=== PATIENT | female | born 1975 | race Caucasian/White ===

== ENCOUNTER → 2020-08-08 | Day surgery (SDC) | payer OTHER | END | disposition home or self-care (01) | LOC: FMAMMOTONE 12:15 | PROVIDERS: ATTEND Surgery | PROC: 0H9T3ZX Drainage of Right Breast, Percutaneous Approach, Diagnostic (ICD-10-PCS; principal; 2020-08-08) | DX: N60.31 Fibrosclerosis of right breast (principal) | CPT/HCPCS: 19081; 76098-TC-FY; 87899; 88305-TC; A4648 ==

== ENCOUNTER 2022-10-03 23:17 | Inpatient (IN) | payer OTHER ==
[2022-10-03 23:24] VITALS: BMI 26.0
[2022-10-03] MEDS ORDERED: ONDANSETRON 4 MG/2 ML VIAL IVPUSH ONE (23:53)
[2022-10-03] MEDS ORDERED: SODIUM CHLORIDE 0.9% 500 ML INFUS.BAG IV ONE (23:53)
[2022-10-03] MEDS ORDERED: ACETAMINOPHEN 1000 MG/100 ML BAG IVPB ONE (23:53)
[2022-10-03] MEDS ORDERED: ONDANSETRON 4 MG/2 ML VIAL ONE (23:56)
[2022-10-03] MEDS ORDERED: ACETAMINOPHEN INJECTION 100 ML IVPB ONE (23:56)
[2022-10-03 23:57] LABS: BASO % 0.5 % (0-2.0); EOS % 0.4 % (0-4.5); HEMATOCRIT 46.6 % (32.4-45.2); HEMOGLOBIN 16.2 GM/dL (10.7-15.3); LYMPH % 4.6 % (8-40); MCH 31.5 pg (25.7-33.7); MCHC 34.8 g/dl (32.0-36.0); MEAN CELL VOLUME 90.6 fl (80-96); MEAN PLT VOLUME 9.4 fl (7.5-11.1); MONO % 4.1 % (3.8-10.2); NEUT % 90.4 % (42.8-82.8); PLATELET COUNT 337 10^3/uL (134-434); RBC 5.14 M/mm3 (3.60-5.2); RDW 13.1 % (11.6-15.6); WHITE BLOOD COUNT 18.6 K/mm3 (4.0-10.0)
[2022-10-04] MEDS ORDERED: morphine SULFATE 4 MG/ML VIAL IVPUSH ONE (00:03)
[2022-10-04] MEDS ORDERED: morphine SULFATE 4 MG/ML VIAL ONE (00:07)
[2022-10-04 00:17] LABS: CALCIUM 9.8 mg/dL (8.5-10.1)
[2022-10-04 00:18] LABS: ALBUMIN 4.8 g/dl (3.4-5.0); BLOOD UREA NITROGEN 22.6 mg/dL (7-18)
[2022-10-04 00:21] LABS: CREATININE 1.6 mg/dL (0.55-1.3)
[2022-10-04 00:23] LABS: BILIRUBIN,TOTAL 0.7 mg/dL (0.2-1); TOT PROT 9.5 g/dl (6.4-8.2)
[2022-10-04 00:50] LABS: LACTIC ACID 2.4 mmol/L (0.4-2.0)
[2022-10-04 01:08] LABS: EPI CELLS >36 /uL (0-25.1); HYALINE CASTS 32 /uL (0-3.1); URINE APPEARANCE CLOUDY; URINE BACTERIA 659 /uL (0-1359); URINE BILIRUBIN 1+ (NEGATIVE); URINE COLOR DK YELLOW; URINE GLUCOSE (UA) NEGATIVE (NEGATIVE); URINE KETONE TRACE (NEGATIVE); URINE LEUK ESTERASE NEGATIVE (NEGATIVE); URINE NITRITE NEGATIVE (NEGATIVE); URINE PROTEIN 2+ (NEGATIVE); URINE RBC 94 /uL (0-23.9); URINE UROBILINOGEN 0.2 mg/dL (0.2-1.0)
[2022-10-04] MEDS ORDERED: SODIUM CHLORIDE 1,000 ML IV STA (04:03)
[2022-10-04] MEDS ORDERED: metroNIDAZOLE 250 MG TABLET PO ONE (05:14)
[2022-10-04] MEDS ORDERED: CIPROFLOXACIN 500 MG TABLET (RESTRICTED TO ID) PO ONE (05:18)
[2022-10-04] MEDS ORDERED: metroNIDAZOLE 250 MG TABLET ONE ×2 (05:22→13:51)
[2022-10-04] MEDS ORDERED: ACETAMINOPHEN 325 MG TABLET (FP) PO PRN (05:40)
[2022-10-04] MEDS ORDERED: DOCUSATE SODIUM 100 MG CAPSULE (FP) PO PRN (05:40)
[2022-10-04] MEDS ORDERED: HEPARIN NA (PORCINE) 5,000 UNITS/ML 1ML VIAL ONE ×2 (06:01→13:51)
[2022-10-04] MEDS: HEPARIN NA (PORCINE) 5,000 UNITS/ML 1ML VIAL SQ SCH ×2 (06:04→13:58)
[2022-10-04] MEDS ORDERED: TRIMETHOBENZAMIDE HCL 200MG/2ML INJ IM PRN (06:44)
[2022-10-04 07:23] VITALS: RESP 18
[2022-10-04 12:05] LABS: BASO % 0.5 % (0-2.0); EOS % 0.6 % (0-4.5); HEMATOCRIT 38.6 % (32.4-45.2); HEMOGLOBIN 13.2 GM/dL (10.7-15.3); LYMPH % 15.4 % (8-40); MCH 31.2 pg (25.7-33.7); MCHC 34.2 g/dl (32.0-36.0); MEAN CELL VOLUME 91.2 fl (80-96); MEAN PLT VOLUME 8.7 fl (7.5-11.1); MONO % 10.6 % (3.8-10.2); NEUT % 72.9 % (42.8-82.8); PLATELET COUNT 249 10^3/uL (134-434); RBC 4.23 M/mm3 (3.60-5.2); RDW 12.8 % (11.6-15.6); WHITE BLOOD COUNT 9.7 K/mm3 (4.0-10.0)
[2022-10-04 12:12] LABS: INR 1.23 (0.83-1.09); PROTHROMBIN TIME (PATIENT) 14.2 SEC (9.7-13.0)
[2022-10-04 12:20] LABS: BLOOD UREA NITROGEN 14.5 mg/dL (7-18); MAGNESIUM 2.1 mg/dL (1.8-2.4)
[2022-10-04 12:23] LABS: CREATININE 0.7 mg/dL (0.55-1.3); PHOSPHOROUS 2.4 mg/dL (2.5-4.9)
[2022-10-04 12:25] LABS: CALCIUM 8.2 mg/dL (8.5-10.1)
[2022-10-04] MEDS ORDERED: metroNIDAZOLE 250 MG TABLET PO SCH (14:00)
[2022-10-04 14:59] VITALS: BP 132/77; PULSE 89; TEMP 98.2
[2022-10-05] MEDS ORDERED: levoFLOXacin 750 MG TABLET PO SCH (10:00)
== END 2022-10-04 15:00 | disposition home or self-care (01) | DRG 249 ==
LOC: JER 23:17 → JERBED 10-04 04:29
PROVIDERS: ADMIT Internal Medicine; ATTEND Internal Medicine
DX: K52.9 Noninfective gastroenteritis and colitis, unspecified (principal); N17.9 Acute kidney failure, unspecified; R07.9 Chest pain, unspecified; R11.2 Nausea with vomiting, unspecified; D72.829 Elevated white blood cell count, unspecified; E86.0 Dehydration
CPT/HCPCS: 36415; 71046-TC-FY; 74177-TC; 76856-TC; 80048; 80053; 81003; 83605; 83735; 84100; 84484; 84703; 85025; 85610; 85730; 87077; 87086; 87186; 93005; 93010; 99285-25; C9803-CS; J1644; U0003; U0005

== ENCOUNTER 2022-11-11 04:51 | Day surgery (SDC) | payer OTHER ==
[2022-11-06 11:43] VITALS: BMI 24.8
[2022-11-11 12:39] VITALS: TEMP 98.6
[2022-11-11 12:41] VITALS: RESP 18
[2022-11-11 12:52] VITALS: BP 102/60; PULSE 76
== END 2022-11-11 11:05 | disposition home or self-care (01) ==
LOC: JASU-ENDO 04:51
PROVIDERS: ATTEND Student in an Organized Health Care Education/Training Program
PROC: 0DBB8ZX Excision of Ileum, Via Natural or Artificial Opening Endoscopic, Diagnostic (ICD-10-PCS; 2022-11-11)
PROC: 0DBB8ZX Excision of Ileum, Via Natural or Artificial Opening Endoscopic, Diagnostic (ICD-10-PCS; principal; 2022-11-11 11:30)
DX: D12.1 Benign neoplasm of appendix (principal); K63.89 Other specified diseases of intestine
CPT/HCPCS: 81025; 88305-TC

== ENCOUNTER 2022-12-16 05:18 | Day surgery (SDC) | payer OTHER ==
[2022-12-15 08:27] VITALS: BMI 24.8
[2022-12-16 12:53] VITALS: TEMP 97.8
[2022-12-16] MEDS ORDERED: ONDANSETRON *ODT* 4 MG TABLET SL ONE (13:50)
[2022-12-16 14:20] VITALS: BP 143/86; PULSE 81; RESP 18
== END 2022-12-16 14:20 | disposition home or self-care (01) ==
LOC: JASU-ENDO 05:18
PROVIDERS: ATTEND Student in an Organized Health Care Education/Training Program
PROC: 0DB78ZX Excision of Stomach, Pylorus, Via Natural or Artificial Opening Endoscopic, Diagnostic (ICD-10-PCS; 2022-12-16)
PROC: 0DB68ZX Excision of Stomach, Via Natural or Artificial Opening Endoscopic, Diagnostic (ICD-10-PCS; 2022-12-16)
PROC: 0DB48ZX Excision of Esophagogastric Junction, Via Natural or Artificial Opening Endoscopic, Diagnostic (ICD-10-PCS; 2022-12-16)
PROC: 0DB98ZX Excision of Duodenum, Via Natural or Artificial Opening Endoscopic, Diagnostic (ICD-10-PCS; principal; 2022-12-16 14:00)
DX: K21.00 Gastro-esophageal reflux disease with esophagitis, without bleeding (principal); K29.40 Chronic atrophic gastritis without bleeding; K29.50 Unspecified chronic gastritis without bleeding; B96.81 Helicobacter pylori [H. pylori] as the cause of diseases classified elsewhere
CPT/HCPCS: 81025; 88305-TC; 88342-TC; Q0162

== ENCOUNTER 2023-08-04 22:15 | Emergency (ER) | payer OTHER ==
[2023-08-04 22:22] VITALS: BP 126/80; PULSE 95; RESP 18; TEMP 98.3; BMI 23.0
== END 2023-08-04 23:49 | disposition home or self-care (01) ==
LOC: JER 22:15 → JERFT 22:15
DX: M79.671 Pain in right foot (principal); S92.354A Nondisplaced fracture of fifth metatarsal bone, right foot, initial encounter for closed fracture; X50.9XXA Other and unspecified overexertion or strenuous movements or postures, initial encounter; Y93.41 Activity, dancing
CPT/HCPCS: 73610-TC-RT-FY; 73630-TC-RT-FY; 99283-25